=== PATIENT | male | born 1980 | race Caucasian/White ===

== ENCOUNTER 2016-08-07 13:45 | Emergency (ER) | payer MEDICAID, OTHER ==
[~2016-08-07] VITALS: Ht 180.3 cm; Wt 91.0 kg
[~2016-08-07 13:45] MED LIST: CYCL1TAB29 PO; NAPR500 PO
[2016-08-07 13:55] VITALS: BP 129/80; PULSE 86; RESP 18; TEMP 98; O2SAT 98
--- NOTE | 2016-08-07 14:11 | PD ---
HPI Chief Complaint: Psychiatric Symptoms Time Seen by Provider: 13:53 Travel History International Travel<30 days: No Contact w/Intl Traveler<30days: No Traveled to known affect area: No History of Present Illness HPI The patient is a 36 year-old male who presents to the emergency department via the police as a Branch act. The patient states he was using crack cocaine last night and when he returned this morning, he felt remorse after taking money from his house, that was intended to go to his daughter's [place] school trip. The patient was have a remorse about his substance abuse and taken the money, therefore, climbed into a tree and an attempt to hang himself. The patient states that the police arrived prior to him hanging himself. The patient does have one previous episode of prior suicide attempt. The patient denies any history of chronic depression, bipolar affective disorder , schizophrenia, mood disorder, but does have a history of relapsing drug abuse. The patient denies any alcohol ingestion. The patient does note suicidal ideation, denies any homicidal ideation, hallucinations, or delusions. PFSH Past Medical History Anxiety: Yes Depression: Yes Musculoskeletal: Yes (chronic back pain) Psychiatric: Yes Tetanus Vaccination: > 5 Years Influenza Vaccination: No Past Surgical History Abdominal Surgery: Yes (4 years old abd surgery; bleeding internally ) Social History Alcohol Use: No Tobacco Use: Yes (1/2ppd) Substance Use: Yes (CRACK) Allergies-Medications (Allergen,Severity, Reaction): Coded Allergies: No Known Allergies (Unverified , 08/07/16) Reported Meds & Prescriptions Reported Meds & Active Scripts Active No Active Prescriptions or Reported Medications Review of Systems Except as stated in HPI: all other systems reviewed are Neg HENT: No: Lightheadedness Cardiovascular: No: Chest Pain or Discomfort Respiratory: No: Shortness of Breath Gastrointestinal: No: Nausea, Vomiting, Abdominal Pain Psychiatric: Positive: Suicidal Ideations, Substance Abuse, No: Anxiety, Depression, Disorder of Thought, Mood Disorder, Homicidal Ideation Physical Exam Narrative GENERAL: Awake, alert, pleasant 36-year-old male who appears his stated age and is in no acute respiratory distress. SKIN: Warm and dry. Multiple tattoos noted. HEAD: Atraumatic. Normocephalic. EYES: No injection or drainage. ENT: No nasal bleeding or discharge. Mucous membranes pink and moist. NECK: Trachea midline. No JVD. CARDIOVASCULAR: Regular rate and rhythm. No murmur appreciated. RESPIRATORY: No accessory muscle use. Clear to auscultation. Breath sounds equal bilaterally. MUSCULOSKELETAL: No obvious deformities. No clubbing. No cyanosis. No edema. NEUROLOGICAL: Awake and alert. No obvious cranial nerve deficits. Motor grossly within normal limits. Normal speech. PSYCHIATRIC: Flat affect. Data Data Last Documented VS Vital Signs Date Time Temp Pulse Resp B/P Pulse Ox O2 Delivery O2 Flow Rate FiO2 08/07/16 13:59 79 17 08/07/16 13:55 98.0 129/80 98 Orders Complete Blood Count With Diff (08/07/16 14:02) Comprehensive Metabolic Panel (08/07/16 14:02) Psych Screen (08/07/16 14:02) Drug Screen, Random Urine (08/07/16 14:02) Alcohol (Ethanol) (08/07/16 14:02) Labs Laboratory Tests Test 08/07/16 14:15 White Blood Count 6.2 TH/MM3 Red Blood Count 4.78 MIL/MM3 Hemoglobin 15.1 GM/DL Hematocrit 42.9 % Mean Corpuscular Volume 89.8 FL Mean Corpuscular Hemoglobin 31.5 PG Mean Corpuscular Hemoglobin 35.1 % Concent Red Cell Distribution Width 12.7 % Platelet Count 270 TH/MM3 Mean Platelet Volume 7.3 FL Neutrophils (%) (Auto) 62.2 % Lymphocytes (%) (Auto) 25.7 % Monocytes (%) (Auto) 10.6 % Eosinophils (%) (Auto) 1.3 % Basophils (%) (Auto) 0.2 % Neutrophils # (Auto) 3.9 TH/MM3 Lymphocytes # (Auto) 1.6 TH/MM3 Monocytes # (Auto) 0.7 TH/MM3 Eosinophils # (Auto) 0.1 TH/MM3 Basophils # (Auto) 0.0 TH/MM3 CBC Comment DIFF FINAL Differential Comment Sodium Level 139 MEQ/L Potassium Level 3.4 MEQ/L Chloride Level 104 MEQ/L Carbon Dioxide Level 29.5 MEQ/L Anion Gap 6 MEQ/L Blood Urea Nitrogen 20 MG/DL Creatinine 1.15 MG/DL Estimat Glomerular Filtration 72 ML/MIN Rate Random Glucose 87 MG/DL Calcium Level 8.7 MG/DL Total Bilirubin 0.9 MG/DL Aspartate Amino Transf 14 U/L (AST/SGOT) Alanine Aminotransferase 27 U/L (ALT/SGPT) Alkaline Phosphatase 72 U/L Total Protein 7.4 GM/DL Albumin 3.8 GM/DL Urine Opiates Screen NEG Urine Barbiturates Screen NEG Urine Amphetamines Screen NEG Urine Benzodiazepines Screen NEG Urine Cocaine Screen POS Urine Cannabinoids Screen POS Ethyl Alcohol Level LESS THAN 3 MG/DL MDM Medical Decision Making Medical Screen Exam Complete: Yes Emergency Medical Condition: Yes Medical Record Reviewed: Yes Interpretation(s) Laboratory Tests Test 08/07/16 14:15 White Blood Count 6.2 TH/MM3 Red Blood Count 4.78 MIL/MM3 Hemoglobin 15.1 GM/DL Hematocrit 42.9 % Mean Corpuscular Volume 89.8 FL Mean Corpuscular Hemoglobin 31.5 PG Mean Corpuscular Hemoglobin 35.1 % Concent Red Cell Distribution Width 12.7 % Platelet Count 270 TH/MM3 Mean Platelet Volume 7.3 FL Neutrophils (%) (Auto) 62.2 % Lymphocytes (%) (Auto) 25.7 % Monocytes (%) (Auto) 10.6 % Eosinophils (%) (Auto) 1.3 % Basophils (%) (Auto) 0.2 % Neutrophils # (Auto) 3.9 TH/MM3 Lymphocytes # (Auto) 1.6 TH/MM3 Monocytes # (Auto) 0.7 TH/MM3 Eosinophils # (Auto) 0.1 TH/MM3 Basophils # (Auto) 0.0 TH/MM3 CBC Comment DIFF FINAL Differential Comment Sodium Level 139 MEQ/L Potassium Level 3.4 MEQ/L Chloride Level 104 MEQ/L Carbon Dioxide Level 29.5 MEQ/L Anion Gap 6 MEQ/L Blood Urea Nitrogen 20 MG/DL Creatinine 1.15 MG/DL Estimat Glomerular Filtration 72 ML/MIN Rate Random Glucose 87 MG/DL Calcium Level 8.7 MG/DL Total Bilirubin 0.9 MG/DL Aspartate Amino Transf 14 U/L (AST/SGOT) Alanine Aminotransferase 27 U/L (ALT/SGPT) Alkaline Phosphatase 72 U/L Total Protein 7.4 GM/DL Albumin 3.8 GM/DL Urine Opiates Screen NEG Urine Barbiturates Screen NEG Urine Amphetamines Screen NEG Urine Benzodiazepines Screen NEG Urine Cocaine Screen POS Urine Cannabinoids Screen POS Ethyl Alcohol Level LESS THAN 3 MG/DL Differential Diagnosis Differential diagnosis includes substance induced mood disorder, psychosis, depressive disorder, major depression, bipolar affective disorder, mood disorder NOS. Narrative Course Labs were drawn and sent. Psychiatric evaluation was ordered. Patient is medically cleared to be evaluated by psychiatry. Disposition as per psych. Diagnosis Primary Impression: Substance induced mood disorder Scripts No Active Prescriptions or Reported Meds Condition: Lavelle Figueroa MD Aug 07, 2016 14:11
[2016-08-07 14:37] LABS: AUTOMATED NEUTROPHIL # 3.9 TH/MM3 (1.8-7.7); BASOPHIL % 0.2 % (0.0-2.0); EOSINOPHIL # 0.1 TH/MM3 (0-0.4); EOSINOPHIL % 1.3 % (0.0-4.0); HEMATOCRIT 42.9 % (39.0-51.0); HEMO FLAGS DIFF FINAL; LYMPH % 25.7 % (9.0-44.0); LYMPHOCYTE # 1.6 TH/MM3 (1.0-4.8); MEAN CELL VOLUME 89.8 FL (80.0-100.0); MEAN CORPUSCULAR HEMOGLOBIN 31.5 PG (27.0-34.0); MEAN CORPUSCULAR HGB CONC 35.1 % (32.0-36.0); MONO % 10.6 % (0.0-8.0); NEUT % 62.2 % (16.0-70.0); PLATELET COUNT 270 TH/MM3 (150-450); RED BLOOD COUNT 4.78 MIL/MM3 (4.50-5.90); RED CELL DISTRIBUTION WIDTH 12.7 % (11.6-17.2); WHITE BLOOD COUNT 6.2 TH/MM3 (4.0-11.0)
[2016-08-07 14:45] LABS: AMPHETAMINE, URINE NEG (NEG); BARBITURATES, URINE NEG (NEG); COCAINE, URINE POS (NEG)
[2016-08-07 14:59] LABS: ALT (GPT) 27 U/L (12-78); ANION GAP 6 MEQ/L (5-15); AST (GOT) 14 U/L (15-37); BICARBONATE 29.5 MEQ/L (21.0-32.0); BLOOD UREA NITROGEN 20 MG/DL (7-18); CHLORIDE 104 MEQ/L (98-107); GLOMERULAR FILTRATION RATE 72 ML/MIN (>89); POTASSIUM 3.4 MEQ/L (3.5-5.1); SODIUM (NA) 139 MEQ/L (136-145)
[2016-08-07 15:00] LABS: ALKALINE PHOSPHATASE 72 U/L (45-117); TOTAL BILIRUBIN ADULT 0.9 MG/DL (0.2-1.0)
[2016-08-07 16:00] VITALS: BP 122/67; PULSE 68; RESP 17; O2SAT 99
== END 2016-08-07 20:51 ==
LOC: NEPE 13:45 → NEPJ 20:51
DX: F14.94 Cocaine use, unspecified with cocaine-induced mood disorder (principal)
CPT/HCPCS: 80053; 80307; 80320; 85025; 99285

== ENCOUNTER 2017-07-23 03:32 | Emergency (ER) | payer MEDICAID, OTHER ==
[~2017-07-23] VITALS: Ht 180.3 cm; Wt 90.5 kg
[2017-07-23 03:33] VITALS: BP 130/75; PULSE 80; RESP 16; TEMP 99.7; O2SAT 99
[2017-07-23] MEDS ORDERED: ZOFR4TAB3 SL (04:19)
--- NOTE | 2017-07-23 04:26 | PD ---
HPI Chief Complaint: Cold / Flu Symptoms Time Seen by Provider: 04:07 Travel History International Travel<30 days: No Contact w/Intl Traveler<30days: No Traveled to known affect area: No History of Present Illness HPI 37-year-old white male presents to emergency department accompanied by his daughter for evaluation of flulike symptoms. He's been sick now for nearly a week. He admits to subjective fever and chills, runny nose, sore throat, cough , posttussive emesis, myalgias, arthralgias and generalized. Positive diarrhea. Patient is been sick now states his symptoms are slowly improving. His and now his daughter is sick. PFSH Past Medical History Anxiety: Yes Depression: Yes Musculoskeletal: Yes (chronic back pain) Psychiatric: Yes Tetanus Vaccination: Unknown Influenza Vaccination: No Past Surgical History Abdominal Surgery: Yes (4 years old abd surgery; bleeding internally ) Social History Alcohol Use: No Tobacco Use: Yes (1 ppd) Substance Use: Yes Allergies-Medications (Allergen,Severity, Reaction): Coded Allergies: No Known Allergies (Unverified , 08/07/16) Reported Meds & Prescriptions Reported Meds & Active Scripts Active Zofran Odt (Ondansetron Odt) 4 Mg Tab 4 Mg SL Q6HR PRN Review of Systems Except as stated in HPI: all other systems reviewed are Neg Physical Exam Narrative GENERAL: Well-developed, well-nourished in no acute distress. Nontoxic appearing. HEAD: Normocephalic, atraumatic. EYES: Pupils equal round and reactive. Extraocular motions intact. No scleral icterus. No injection or drainage. ENT: TMs clear without erythema. The external auditory canals clear. Nose: clear . Posterior pharynx is pink and moist. No tonsillar edema or exudate. Uvula midline. Airway patent. NECK: Trachea midline.Supple, nontender, moves head freely. No central bony tenderness or spasm. CARDIOVASCULAR: Regular rate and rhythm without murmurs, gallops, or rubs. RESPIRATORY: Clear to auscultation. Breath sounds equal bilaterally. No wheezes , rales, or rhonchi. GASTROINTESTINAL: Abdomen soft, non-tender, nondistended. No hepato-splenomegaly , or palpable masses. No guarding. EXTREMITIES: No clubbing, cyanosis, or edema. No joint tenderness, effusion, or edema noted. BACK: Nontender without deformity or crepitance. No flank tenderness. Data Data Last Documented VS Vital Signs Date Time Temp Pulse Resp B/P (MAP) Pulse Ox O2 Delivery O2 Flow Rate FiO2 07/23/17 03:33 99.7 80 16 130/75 (93) 99 Room Air Orders Orders Ed Discharge Order (07/23/17 04:19) MDM Medical Decision Making Medical Screen Exam Complete: Yes Emergency Medical Condition: Yes Medical Record Reviewed: Yes Differential Diagnosis MDM: High Differential diagnoses: Pneumonia, bronchitis, URI, asthma, RAD, influenza Narrative Course Patient has influenza-like symptoms. Diagnosis Primary Impression: influenza Patient Instructions: General Instructions Additional Instructions: Rest. Increase fluids. 3 Advil every 6 hours Robitussin-DM. Zofran for nausea. Followup with your Dr. in one week. Return to the ER for any problems. Med/Other Pt SpecificInfo: Prescription(s) given Scripts Ondansetron Odt (Zofran Odt) 4 Mg Tab 4 MG SL Q6HR Y for Nausea/Vomiting, #12 TAB 0 Refills Prov: Joni Irene MD 07/23/17 Disposition: 01 DISCHARGE HOME Condition: Stable Abiel Schaefer Jul 23, 2017 04:26
== END 2017-07-23 05:18 | disposition home or self-care (01) ==
LOC: NEPD 03:32
DX: J11.1 Influenza due to unidentified influenza virus with other respiratory manifestations (principal); F17.200 Nicotine dependence, unspecified, uncomplicated
CPT/HCPCS: 99283

== ENCOUNTER 2017-11-19 12:29 | Emergency (ER) | payer MEDICAID ==
[~2017-11-19] VITALS: Ht 180.3 cm; Wt 90.2 kg
[~2017-11-19 12:29] MED LIST changes: -CYCL1TAB29 PO; -NAPR500 PO; +ZOFR4TAB3 SL
[2017-11-19 12:31] VITALS: BP 158/65; PULSE 90; RESP 16; TEMP 98.6; O2SAT 98
[2017-11-19] MEDS ORDERED: ALBUAER3 INH (13:15)
[2017-11-19] MEDS ORDERED: AMOX500T PO (13:15)
--- NOTE | 2017-11-19 13:15 | PD ---
HPI Chief Complaint: Cold / Flu Symptoms Time Seen by Provider: 12:54 Travel History International Travel<30 days: No Contact w/Intl Traveler<30days: No Traveled to known affect area: No History of Present Illness HPI 37-year-old male with right ear pain for several weeks. He is also complaining of nasal congestion and a cough for the last week. Occasional wheezing. No fever chills. Symptom severity is moderate. History of frequent ear infections similar symptoms in the past. Symptom severity is mild to moderate. No aggravating or alleviating factors. PFSH Past Medical History Anxiety: Yes Depression: Yes Diminished Hearing: No Musculoskeletal: Yes (chronic back pain) Psychiatric: Yes Immunizations Current: Yes Tetanus Vaccination: Unknown Influenza Vaccination: No Past Surgical History Abdominal Surgery: Yes (4 years old abd surgerycolon resection internal bleeding) Social History Alcohol Use: No Tobacco Use: Yes (1 ppd) Substance Use: No Allergies-Medications (Allergen,Severity, Reaction): Coded Allergies: No Known Allergies (Unverified Adverse Reaction, Unknown, 11/19/17) Reported Meds & Prescriptions Reported Meds & Active Scripts Active No Active Prescriptions or Reported Medications Review of Systems Except as stated in HPI: all other systems reviewed are Neg General / Constitutional: No: Fever HENT: Positive: Earache Cardiovascular: No: Chest Pain or Discomfort Respiratory: Positive: Cough, Wheezing Gastrointestinal: No: Abdominal Pain Genitourinary: No: Dysuria Musculoskeletal: No: Pain Skin: No Rash Physical Exam Narrative GENERAL: Alert and well-appearing 37-year-old male SKIN: Warm and dry. HEAD: Normocephalic. EYES: No scleral icterus. No injection or drainage. ENT: Right TM erythema, bulging, loss of landmarks. No canal swelling or drainage. No mastoid tenderness. No pharyngeal erythema. Uvula is midline. Airways patent. NECK: Supple CARDIOVASCULAR: Regular rate and rhythm without murmurs, gallops, or rubs. RESPIRATORY: Breath sounds equal bilaterally. No accessory muscle use. GASTROINTESTINAL: Abdomen soft, non-tender, nondistended. MUSCULOSKELETAL: No cyanosis, or edema. Data Data Last Documented VS Vital Signs Date Time Temp Pulse Resp B/P (MAP) Pulse Ox O2 Delivery O2 Flow Rate FiO2 11/19/17 12:31 98.6 90 16 158/65 (96) 98 MDM Medical Decision Making Medical Screen Exam Complete: Yes Emergency Medical Condition: Yes Differential Diagnosis Otitis media, otitis externa, URI, bronchitis Narrative Course 37-year-old male here with right-sided otitis media. He is also reporting frequent cough and wheezing. His lungs are clear during exam. he is a smoker and reports using bronchodilators in the past. He will be discharged home with amoxicillin and albuterol inhaler. Follow-up with primary care Diagnosis Primary Impression: Otitis media Qualified Codes: H66.90 - Otitis media, unspecified, unspecified ear Additional Impression: Cough Referrals: Primary Care Physician Additional Instructions: Medication as directed. Follow-up with your doctor. Scripts Albuterol 8.5 GM Inh (Proair Hfa 8.5 GM Inh) 90 Mcg/Act Aer 2 PUFF INH Q4-6H Y for SHORTNESS OF BREATH, #1 INHALER 0 Refills 108 mcg/actuation Prov: Florence Parnell 11/19/17 Amoxicillin (Amoxicillin) 500 Mg Tab 500 MG PO TID for Infection for 10 Days, TAB 0 Refills Prov: Florence Parnell 11/19/17 Disposition: 01 DISCHARGE HOME Condition: Stable Florence Parnell November 19, 2017 13:15
== END 2017-11-19 13:35 | disposition home or self-care (01) ==
LOC: PHEFT 12:29
DX: H66.91 Otitis media, unspecified, right ear (principal); R05 Cough; R06.2 Wheezing; F41.9 Anxiety disorder, unspecified; F32.9 Major depressive disorder, single episode, unspecified; F17.200 Nicotine dependence, unspecified, uncomplicated
CPT/HCPCS: 99283